=== PATIENT | female | born 1965 | race Caucasian/White ===

== ENCOUNTER 2017-12-01 11:56 | Day surgery (SDC) | payer OTHER ==
[2017-12-01] MEDS ORDERED: MIDAZOLAM 1 MG/ML 2 ML INJ ×2 (14:21)
[2017-12-01] MEDS ORDERED: FENTAnyl 50 MCG/ML VIAL (14:21)
== END 2017-12-01 17:56 | disposition home or self-care (01) ==
LOC: GIL 11:56
DX: Z12.11 Encounter for screening for malignant neoplasm of colon (principal); K63.89 Other specified diseases of intestine; K64.8 Other hemorrhoids; I10 Essential (primary) hypertension
CPT/HCPCS: 45378; 84703